=== PATIENT | male | born 1990 | race Caucasian/White ===

== ENCOUNTER 2017-10-30 22:18 | Emergency (ER) | payer OTHER ==
--- NOTE | 2017-10-30 22:25 | EDPHY ---
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 He states he worked out very hard. Additionally he smoked marijuana. He states after doing cocaine yesterday, working out vigorously, smoking marijuana, drinking an energy drink he started developing palpitations and anxiety. He states he had bilateral hand numbness and tingling. This prompted him to come to the emergency room. Past Medical History: Denies medical history Past Surgical History: Denies surgical history Social History: Recent use of cocaine yesterday, energy drink today, marijuana today Family History: Noncontributory ROS REVIEW OF SYSTEMS: A comprehensive 10 point review of systems is otherwise negative aside from elements mentioned in the history of present illness. Exam Constitutional somewhat anxious, triage nursing summary reviewed, vital signs reviewed, awake/alert. Vital signs stable. Eyes normal conjunctivae and sclera, EOMI, PERRLA. HENT normal inspection, atraumatic, moist mucus membranes, no epistaxis, neck supple/ no meningismus, no raccoon eyes. Respiratory clear to auscultation bilaterally, normal breath sounds, no respiratory distress, no wheezing. Cardiovascular rate normal, regular rhythm, no murmur, no edema, distal pulses normal. Gastrointestinal soft, non-tender, no rebound, no guarding, normal bowel sounds, no distension, no pulsatile mass. Genitourinary no CVA tenderness. Musculoskeletal no midline vertebral tenderness, full range of motion, no calf swelling, no tenderness of extremities, no meningismus, good pulses, neurovascularly intact. Skin pink, warm, & dry, no rash, skin atraumatic. Neurologic awake, alert and oriented x 3, AAOx3, moves all 4 extremities equally, motor intact, sensory intact, CN II-XII intact, normal cerebellar, normal vision, normal speech. Psychiatric normal mood/affect. Heme/Lymph/Immune no lymphadenopathy. Differential Diagnosis: Includes but is not limited to in a particular order acute anxiety, panic attack, cocaine abuse, electrolyte disturbance, cardiac arrhythmia, cardiac vaso spasm. Medical Decision Making: Plan for this patient IV establishment, IV fluid bolus , IV Ativan 0.5 mg x1 dose, check basic electrolytes, EKG, chest x-ray to rule pneumothorax, IV hydration, check CK and re-evaluate Re-evaluation: EKG interpretation by me on record in [employer] system. Impression time of EK, this is sinus rhythm rate of 90 there is no signs of cardiac arrhythmia no signs of ST elevation or ST depression no signs of T-wave abnormalities. Unremarkable nonischemic EKG. ED x-ray chest one view: Negative for acute cardiopulmonary disease. 1229: Patient re-evaluated this time. Patient resting comfortably denies any chest pain or shortness of breath feels much better after IV Ativan. Chest x- ray, EKG, blood work, troponin are reviewed and are negative. 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 Given the constellation of cocaine use, marijuana use, energy drink, excessive exercise this most likely the cause of him feeling bad tonight. There is no evidence of cardiac disease. Nonischemic EKG. Normal troponin. Chest x-ray unremarkable normal heart size. I do feel comfortable allowing to go home he has no further symptoms and feels better after IV Ativan. Return precautions discussed with him. He understands return emergency room if develops chest pain, shortness of breath, worsening symptoms. Source: Patient - Medical/Surgical History Hx Asthma: No Hx Chronic Respiratory Disease: No Hx Diabetes: No Hx Cardiac Disease: No Hx Renal Disease: No Hx Cirrhosis: No Hx Alcoholism: No Hx HIV/AIDS: No Hx Splenectomy or Spleen Trauma: No Other PMH: DENIES - Social History Smoking Status: Former smoker Constitutional: Initial Vital Signs Temperature (C) 36.8 C 10/30/17 22:21 Heart Rate 102 H 10/30/17 22:21 Respiratory Rate 16 10/30/17 22:21 Blood Pressure 143/100 H 10/30/17 22:21 O2 Sat (%) 94 10/30/17 22:21 O2 Delivery Mode Room Air Allergies/Adverse Reactions: No Known Allergies Allergy (Verified 06/11/15 11:29) Home Medications: Medication Instructions Recorded NK [No Known Home Meds] 03/03/15 Medical Decision Making - Diagnostics Imaging Results: Imaging Impressions Chest X-Ray 10/30/17 22:30 Impression: Excellent inspiration. Otherwise unremarkable. - Data Points Laboratory Results: Laboratory Results 10/30/17 22:35 10/30/17 22:35 10/30/17 10/30/17 22:35 22:35 WBC 7.98 10^3/uL 10^3/uL (3.80-9.50) RBC 4.97 10^6/uL 10^6/uL (4.40-6.38) Hgb 15.8 g/dL g/dL (13.7-17.5) Hct 44.9 % % (40.0-51.0) MCV 90.3 fL fL (81.5-99.8) MCH 31.8 pg pg (27.9-34.1) MCHC 35.2 g/dL g/dL (32.4-36.7) RDW 12.0 % % (11.5-15.2) Plt Count 266 10^3/uL 10^3/uL (150-400) MPV 10.5 fL fL (8.7-11.7) Neut % (Auto) 54.9 % % (39.3-74.2) Lymph % (Auto) 33.6 % % (15.0-45.0) [place] % (Auto) 9.5 % % (4.5-13.0) Eos % (Auto) 1.4 % % (0.6-7.6) Baso % (Auto) 0.5 % % (0.3-1.7) Nucleat RBC Rel Count 0.0 % % (0.0-0.2) Absolute Neuts (auto) 4.38 10^3/uL 10^3/uL (1.70-6.50) Absolute Lymphs (auto) 2.68 10^3/uL 10^3/uL (1.00-3.00) Absolute Monos (auto) 0.76 10^3/uL 10^3/uL (0.30-0.80) Absolute Eos (auto) 0.11 10^3/uL 10^3/uL (0.03-0.40) Absolute Basos (auto) 0.04 10^3/uL 10^3/uL (0.02-0.10) Absolute Nucleated RBC 0.00 10^3/uL 10^3/uL (0-0.01) Immature Gran % 0.1 % % (0.0-1.1) Immature Gran # 0.01 10^3/uL 10^3/uL (0.00-0.10) Sodium 137 mEq/L mEq/L (135-145) Potassium 3.7 mEq/L mEq/L (3.5-5.2) Chloride 99 mEq/L mEq/L (97-110) Carbon Dioxide 20 mEq/l L mEq/l (22-31) Anion Gap 18 mEq/L H mEq/L (8-16) BUN 22 mg/dL mg/dL (7-23) Creatinine 1.3 mg/dL mg/dL (0.7-1.3) Estimated GFR > 60 Glucose 99 mg/dL mg/dL (70-100) Calcium 9.8 mg/dL mg/dL (8.5-10.4) Magnesium 2.0 mg/dL mg/dL (1.6-2.3) Total Bilirubin 1.2 mg/dL mg/dL (0.1-1.4) Conjugated Bilirubin 0.5 mg/dL mg/dL (0.0-0.5) Unconjugated Bilirubin 0.7 mg/dL mg/dL (0.0-1.1) AST 84 IU/L H IU/L (17-59) ALT 58 IU/L IU/L (21-72) Alkaline Phosphatase 73 IU/L IU/L (38-126) Creatine Kinase 307 IU/L H IU/L (0-224) CK-MB (CK-2) Fraction 3.15 ng/mL ng/mL (0.00-3.19) CK-MB (CK-2) % 1.0 % % (0.0-4.0) Creatine Kinase Interp NEGATIVE (NEGATIVE) Troponin I < 0.012 ng/mL ng/mL (0.000-0.034) Total Protein 8.1 g/dL g/dL (6.3-8.2) Albumin 4.8 g/dL g/dL (3.5-5.0) Medications Given: Discontinued Medications Sodium Chloride (Ns) 1,000 mls @ 0 mls/hr IV EDNOW ONE; Wide Open PRN Reason: Protocol Stop: 10/30/17 22:31 Last Admin: 10/30/17 22:41 Dose: 1,000 mls Sodium Chloride (Ns) 1,000 mls @ 0 mls/hr IV ONCE ONE PRN Reason: Wide Open Stop: 10/30/17 22:35 Last Admin: 10/30/17 23:26 Dose: 1,000 mls Departure - Departure Disposition: Home, Routine, Self-Care Clinical Impression: Anxiety Condition: Good Instructions: Anxiety (ED) Additional Instructions: 1. Stay well-hydrated drink lots of fluids. 2. Return emergency room if you have any worsening symptoms questions or concerns. 3. Take it easy. Rest. Referrals: NONE *PRIMARY CARE P,. [Primary Care Provider] - As per Instructions
[2017-10-30] MEDS ORDERED: LORazepam 2 MG/ML INJ IVP ONE (22:30)
[2017-10-30] MEDS ORDERED: NS 1,000 ML IV ONE ×2 (22:30→22:34)
[2017-10-30 22:45] LABS: PLATELET COUNT 266 10^3/uL (150-400)
[2017-10-30 22:55] LABS: CREATINE KINASE 307 IU/L (0-224)
--- NOTE | 2017-10-30 23:34 | CPEKG ---
Heart Rate: 90 RR Interval: 667 P-R Interval: 156 QRSD Interval: 104 QT Interval: 376 QTC Interval: 460 P [place]: 74 QRS [place]: 56 T Wave [place]: 53 EKG Severity - NORMAL ECG - EKG Impression: SINUS RHYTHM Electronically Signed By: Chago Donato 31-Oct-2017 07:18:10
[2017-10-31 00:51] VITALS: BP 118/72
== END 2017-10-31 00:51 | disposition home or self-care (01) ==
DX: F41.9 Anxiety disorder, unspecified (principal); E86.9 Volume depletion, unspecified; Z87.891 Personal history of nicotine dependence
CPT/HCPCS: J2060